=== PATIENT | female | born 1950 | race Caucasian/White ===

== ENCOUNTER → 2016-05-29 | Outpatient (CLI) | payer MEDICARE, BC ==
[~2016-05-29] MED LIST: ACET325 PO; ALLO100T PO; AMIO200 PO; ASPI325T PO; ATOR20TA15 PO; CALCCAP8 PO; CALCTAB23 PO; CRAN125T PO; CYCL5TAB PO; DILT120C9 PO; ECOT81TA2 PO; EQ N PO; FAMO1TAB36 PO; FAMO20TA2 PO; FLUT1SPR9 NASAL; FLUT50SP EACH NARE; FURO20TA PO; GABA300C3 PO; GABA300C5 PO; LEVO.1 PO; LISI-357 PO; MAGN500T4 PO; META0.52 PO; META48.54 PO; METO25CR PO; NICO2GUM35 CHEW; NITR0.4S SL; PLAV75TA PO; PRIL40CA PO; SIMV20 PO; SPIR25TA PO; SYNT88TA PO; TORS20 PO
[2016-05-29 13:16] LABS: BLOOD, URINE NEG (NEG); GLUCOSE,URINE NEG (NEG); HYALINE CAST, URINE 11 /lpf (RARE); KETONE, URINE NEG (NEG); MUCUS URINE FEW /lpf (OCC); NITRITE,URINE NEG (NEG); PH, URINE 7.5 (5.0-8.5); SQUAMOUS EPITHELIAL CELL URINE <1 /hpf (0-5); URINE COLOR LIGHT-YELLOW (YELLW/STRAW)
[2016-05-29 13:19] LABS: ALT (GPT) 29 U/L (10-53); ANION GAP 8 MEQ/L (5-15); AST (GOT) 20 U/L (15-37); AUTOMATED NEUTROPHIL # 4.9 TH/MM3 (1.8-7.7); BASOPHIL # 0.1 TH/MM3 (0-0.2); BASOPHIL % 1.1 % (0.0-2.0); BICARBONATE 31.2 MEQ/L (21.0-32.0); BLOOD UREA NITROGEN 22 MG/DL (7-18); CHLORIDE 100 MEQ/L (98-107); EOSINOPHIL # 0.3 TH/MM3 (0-0.4); EOSINOPHIL % 3.9 % (0.0-4.0); GLOMERULAR FILTRATION RATE 40 ML/MIN (>89); GLUCOSE,FASTING 105 MG/DL (74-99); HEMATOCRIT 35.9 % (35.0-46.0); HEMO FLAGS DIFF FINAL; LYMPH % 17.3 % (9.0-44.0); LYMPHOCYTE # 1.3 TH/MM3 (1.0-4.8); MEAN CELL VOLUME 91.8 FL (80.0-100.0); MEAN CORPUSCULAR HEMOGLOBIN 31.1 PG (27.0-34.0); MEAN CORPUSCULAR HGB CONC 33.9 % (32.0-36.0); MONO % 9.9 % (0.0-8.0); NEUT % 67.8 % (16.0-70.0); PLATELET COUNT 292 TH/MM3 (150-450); POTASSIUM 3.8 MEQ/L (3.5-5.1); RED BLOOD COUNT 3.91 MIL/MM3 (4.00-5.30); SODIUM (NA) 139 MEQ/L (136-145); WHITE BLOOD COUNT 7.2 TH/MM3 (4.0-11.0)
[2016-05-29 13:29] LABS: ALKALINE PHOSPHATASE 64 U/L (45-117); HDL CHOLESTEROL 92.8 MG/DL (40.0-60.0); LDL CHOLESTEROL 76 MG/DL (0-99); THYROXINE (T4) 9.5 MCG/DL (4.8-13.9); TOTAL BILIRUBIN ADULT 0.6 MG/DL (0.2-1.0)
[2016-05-29 17:16] LABS: HEMOGLOBIN A1a 1.1 %; HEMOGLOBIN A1b 0.9 %; HEMOGLOBIN Ao 84.5 %; HEMOGLOBIN F 0.9 %; HEMOGLOBIN LA1C 2.1 %; HEMOGLOBIN P3 5.8 %
== END ==
LOC: PLAB 10:22
PROVIDERS: ATTEND Internal Medicine
DX: E11.8 Type 2 diabetes mellitus with unspecified complications (principal); E03.9 Hypothyroidism, unspecified; E78.00 Pure hypercholesterolemia, unspecified
CPT/HCPCS: 36415; 80053; 80061; 81001; 83036; 84436; 84443; 84480; 85025

== ENCOUNTER → 2016-07-21 | Outpatient (CLI) | payer MEDICARE, BC | LOC: PLAB 12:23 | PROVIDERS: ATTEND Internal Medicine | DX: M10.9 Gout, unspecified (principal) | CPT/HCPCS: 36415; 84550 ==

== ENCOUNTER → 2016-08-19 | Outpatient (CLI) | payer MEDICARE, BC ==
[2016-08-19 13:50] LABS: BICARBONATE 30.3 MEQ/L (21.0-32.0); FREE T4 1.15 NG/DL (0.76-1.46); MAGNESIUM 2.7 MG/DL (1.5-2.5); POTASSIUM 3.9 MEQ/L (3.5-5.1)
== END ==
LOC: PLAB 09:59
PROVIDERS: ATTEND Internal Medicine Interventional Cardiology
DX: E78.5 Hyperlipidemia, unspecified (principal); I10 Essential (primary) hypertension; I25.10 Atherosclerotic heart disease of native coronary artery without angina pectoris
CPT/HCPCS: 36415; 80048; 83735; 84439; 84443

== ENCOUNTER → 2016-08-24 | Outpatient (CLI) | payer MEDICARE, BC ==
[2016-08-24 18:12] LABS: AUTOMATED NEUTROPHIL # 6.1 TH/MM3 (1.8-7.7); BASOPHIL # 0.1 TH/MM3 (0-0.2); BASOPHIL % 1.4 % (0.0-2.0); EOSINOPHIL # 0.2 TH/MM3 (0-0.4); EOSINOPHIL % 2.9 % (0.0-4.0); HEMATOCRIT 37.3 % (35.0-46.0); HEMO FLAGS DIFF FINAL; LYMPH % 14.6 % (9.0-44.0); LYMPHOCYTE # 1.2 TH/MM3 (1.0-4.8); MEAN CELL VOLUME 92.4 FL (80.0-100.0); MEAN CORPUSCULAR HEMOGLOBIN 30.2 PG (27.0-34.0); MEAN CORPUSCULAR HGB CONC 32.7 % (32.0-36.0); MONO % 8.6 % (0.0-8.0); NEUT % 72.5 % (16.0-70.0); PLATELET COUNT 282 TH/MM3 (150-450); RED BLOOD COUNT 4.03 MIL/MM3 (4.00-5.30); RED CELL DISTRIBUTION WIDTH 13.9 % (11.6-17.2); WHITE BLOOD COUNT 8.4 TH/MM3 (4.0-11.0)
[2016-08-24 18:40] LABS: TOTAL PROTEIN SPE 7.7 GM/DL (6.0-7.6)
[2016-08-24 19:50] LABS: ALKALINE PHOSPHATASE 69 U/L (45-117); ALT (GPT) 24 U/L (10-53); ANION GAP 12 MEQ/L (5-15); AST (GOT) 23 U/L (15-37); BICARBONATE 27.7 MEQ/L (21.0-32.0); BLOOD UREA NITROGEN 26 MG/DL (7-18); CHLORIDE 99 MEQ/L (98-107); GLOMERULAR FILTRATION RATE 36 ML/MIN (>89); GLUCOSE,FASTING 102 MG/DL (74-99); LDL CHOLESTEROL 42 MG/DL (0-99); SODIUM (NA) 139 MEQ/L (136-145)
[2016-08-25 21:56] LABS: ALBUMIN SPE 4.84 GM/DL (3.50-5.00); ALPHA 1 GLOBULIN 0.23 GM/DL (0.11-0.29); ALPHA 2 GLOBULIN 0.84 GM/DL (0.22-1.00); BETA GLOBULINS (SPE) 0.9 GM/DL (0.53-1.03)
[2016-08-27 23:52] LABS: KAPPA/LAMBDA FREE 2.02 (0.26-1.65)
== END ==
LOC: PLAB 14:28
PROVIDERS: ATTEND Internal Medicine Interventional Cardiology
DX: I35.0 Nonrheumatic aortic (valve) stenosis (principal); E55.9 Vitamin D deficiency, unspecified; I48.91 Unspecified atrial fibrillation; E78.5 Hyperlipidemia, unspecified; I13.0 Hypertensive heart and chronic kidney disease with heart failure and stage 1 through stage 4 chronic kidney disease, or unspecified chronic kidney disease; N18.3 Chronic kidney disease, stage 3 (moderate); I50.9 Heart failure, unspecified; I25.10 Atherosclerotic heart disease of native coronary artery without angina pectoris
CPT/HCPCS: 36415; 80053; 80061; 82306; 83883; 83970; 84100; 84165; 85025; 86803; 87340

== ENCOUNTER → 2016-09-15 | Outpatient (CLI) | payer MEDICARE, BC ==
[2016-09-15 13:38] LABS: ALKALINE PHOSPHATASE 68 U/L (45-117); ALT (GPT) 23 U/L (10-53); ANION GAP 9 MEQ/L (5-15); AST (GOT) 17 U/L (15-37); BICARBONATE 29.1 MEQ/L (21.0-32.0); BLOOD UREA NITROGEN 30 MG/DL (7-18); CHLORIDE 102 MEQ/L (98-107); GLOMERULAR FILTRATION RATE 38 ML/MIN (>89); GLUCOSE,FASTING 126 MG/DL (74-99); LDL CHOLESTEROL 56 MG/DL (0-99); POTASSIUM 4.6 MEQ/L (3.5-5.1); SODIUM (NA) 140 MEQ/L (136-145); TOTAL BILIRUBIN ADULT 0.5 MG/DL (0.2-1.0)
== END ==
LOC: PLAB 09:40
PROVIDERS: ATTEND Internal Medicine Interventional Cardiology
DX: E78.5 Hyperlipidemia, unspecified (principal); I35.0 Nonrheumatic aortic (valve) stenosis; I10 Essential (primary) hypertension; E03.9 Hypothyroidism, unspecified
CPT/HCPCS: 36415; 80053; 80061

== ENCOUNTER 2016-10-12 09:44 | Emergency (ER) | payer MEDICARE, BC ==
[~2016-10-12] VITALS: Ht 157.5 cm; Wt 75.0 kg
[~2016-10-12 09:44] MED LIST changes: -ALLO100T PO; -ASPI325T PO; -ATOR20TA15 PO; -CALCCAP8 PO; -DILT120C9 PO; -FAMO20TA2 PO; -FLUT50SP EACH NARE; -FURO20TA PO; -GABA300C5 PO; -META48.54 PO; -NICO2GUM35 CHEW; -SYNT88TA PO
[2016-10-12 09:46] VITALS: BP 121/70; PULSE 83; RESP 16; TEMP 97.8; O2SAT 98
[2016-10-12] MEDS ORDERED: FLUT50SP EACH NARE (10:29)
[2016-10-12] MEDS ORDERED: GABA300C5 PO (10:29)
[2016-10-12] MEDS ORDERED: META48.54 PO (10:29)
[2016-10-12] MEDS ORDERED: FURO20TA PO (10:29)
[2016-10-12] MEDS ORDERED: SPIR25TA PO (10:29)
[2016-10-12] MEDS ORDERED: ATOR20TA15 PO (10:29)
[2016-10-12] MEDS ORDERED: NICO2GUM35 CHEW (10:29)
[2016-10-12] MEDS ORDERED: CALCCAP8 PO (10:29)
[2016-10-12] MEDS ORDERED: DILT120C9 PO (10:29)
[2016-10-12] MEDS ORDERED: MAGN500T4 PO (10:29)
[2016-10-12] MEDS ORDERED: FAMO20TA2 PO (10:29)
[2016-10-12] MEDS ORDERED: ALLO100T PO (10:29)
[2016-10-12] MEDS ORDERED: NITR0.4S SL (10:29)
[2016-10-12] MEDS ORDERED: ASPI325T PO (10:29)
[2016-10-12] MEDS ORDERED: SYNT88TA PO (10:29)
[2016-10-12 10:42] VITALS: RESP 20; O2SAT 94
[2016-10-12] MEDS ORDERED: SODIUM CHLORIDE 0.9% FLUSH 10 ML FLUSH IVF PRN (10:45)
[2016-10-12 10:59] LABS: AUTOMATED NEUTROPHIL # 7.8 TH/MM3 (1.8-7.7); BASOPHIL # 0.1 TH/MM3 (0-0.2); BASOPHIL % 0.9 % (0.0-2.0); EOSINOPHIL # 0.2 TH/MM3 (0-0.4); EOSINOPHIL % 2.3 % (0.0-4.0); HEMATOCRIT 35.8 % (35.0-46.0); HEMO FLAGS DIFF FINAL; LYMPH % 10.2 % (9.0-44.0); MEAN CORPUSCULAR HEMOGLOBIN 29.6 PG (27.0-34.0); MEAN CORPUSCULAR HGB CONC 32.6 % (32.0-36.0); MONO % 7.2 % (0.0-8.0); NEUT % 79.4 % (16.0-70.0); PLATELET COUNT 273 TH/MM3 (150-450); RED BLOOD COUNT 3.94 MIL/MM3 (4.00-5.30); RED CELL DISTRIBUTION WIDTH 14.9 % (11.6-17.2); WHITE BLOOD COUNT 9.8 TH/MM3 (4.0-11.0)
[2016-10-12 11:23] LABS: ALT (GPT) 22 U/L (10-53); ANION GAP 9 MEQ/L (5-15); AST (GOT) 21 U/L (15-37); BICARBONATE 29.7 MEQ/L (21.0-32.0); BLOOD UREA NITROGEN 18 MG/DL (7-18); CHLORIDE 100 MEQ/L (98-107); GLOMERULAR FILTRATION RATE 41 ML/MIN (>89); MAGNESIUM 2.5 MG/DL (1.5-2.5); POTASSIUM 3.7 MEQ/L (3.5-5.1); SODIUM (NA) 139 MEQ/L (136-145)
[2016-10-12 11:26] LABS: PROTHROMBIN TIME - PATIENT 11.2 SEC (9.8-11.6)
[2016-10-12 11:27] LABS: ALKALINE PHOSPHATASE 73 U/L (45-117)
--- NOTE | 2016-10-12 11:28 | RADRPT ---
EXAM DATE/TIME: 10/12/2016 11:03 [facility] COMPARISON: CHEST PA & LAT, August 08, 2014, 13:11. INDICATIONS : Patient states cough and chest tightness. MEDICAL HISTORY : None. SURGICAL HISTORY : CABG. ENCOUNTER: Initial ACUITY: 1 day PAIN SCORE: 0/10 LOCATION: Bilateral chest FINDINGS: Frontal and lateral views of the chest demonstrate mildly enlarged cardiac silhouette in this patient post median sternotomy. Aortic valve replacement has been performed and there is a stent overlying t he proximal ascending aorta. Loop recorder type device overlies the left chest. There is stable scar in the left mid to lower lung zone. There is slight blunting of the right costophrenic angle. No pneu mothorax is visualized. Bones and soft tissues demonstrate no acute finding. Multiple embolization co ils are present within the upper abdomen. CONCLUSION: 1. Slight blunting of the right costophrenic angle likely indicating a small right pleural effusion. 2. Stable moderate enlargement of the cardiac silhouette in this patient post aortic valve replacemen t and stenting. Elmo Recio MD on October 12, 2016 at 11:24 Board Certified Radiologist. This report was verified electronically.
[2016-10-12 11:29] LABS: CREATINE KINASE 50 U/L (26-192)
[2016-10-12 12:40] VITALS: BP 115/62; PULSE 82; RESP 16; O2SAT 95
--- NOTE | 2016-10-12 15:05 | PD ---
HPI Chief Complaint: Respiratory Symptoms Time Seen by Provider: 10:30 Travel History International Travel<30 days: No Contact w/Intl Traveler<30days: No Traveled to known affect area: No History of Present Illness HPI Patient 66-year-old female presents emergency Department with some mild shortness of breath. Patient states feels similar to when her aortic valve filter in the past. She has a history of 3 aortic valve replacements. Patient is followed by Dr. Payton who recommended she come here after discussing with him over the phone. She denies any chest pain has minimal swelling her legs. States his been taking off her medicines as prescribed. She is concerned because [place] 3 [place] and wants to be checked out to make sure it safe to fly. She denies any dizziness weakness focalized weakness abdominal pain nausea vomiting. As he going on for a few days and gradually worsening. PFSH Past Medical History Hx Anticoagulant Therapy: Yes Arthritis: Yes Atrial Fibrillation: Yes (ABLATION 2011) Depression: Yes Heart Rhythm Problems: Yes (AFIB- ABLATION ) Cancer: No Cardiac Catheterization: Yes Cardiovascular Problems: Yes (valve replacement) High Cholesterol: Yes Congestive Heart Failure: Yes Diabetes: No Diminished Hearing: No Endocrine: Yes Gastrointestinal Disorders: Yes (GERD, HX GI BLEED) GERD: Yes Genitourinary: Yes Hepatitis: No Hiatal Hernia: No Hypertension: Yes Immune Disorder: No Implanted Vascular Access Dvce: Yes Kidney Stones: Yes Medical other: Yes (ESOPH. NERVE TO MUSCLE DYSFUNCTION, PORCELIN GB) Musculoskeletal: Yes (ARTHRITIS, ACL TEAR LEFT) Neurologic: Yes (RIGHT SCIATIC NERVE DAMAGE, HX SEIZURES) Psychiatric: No Reproductive: No Respiratory: Yes Pneumonia: Yes (X1) Seizures: Yes (MINI ) Thyroid Disease: Yes (HYPOTHYROID) Tetanus Vaccination: < 5 Years Influenza Vaccination: Yes PNEUMOCCOCAL Vaccine (Year): 1 Menopausal: Yes : 4 Para: 4 Miscarriage: 0 : 0 Past Surgical History Abdominal Surgery: Yes (16 COILS- FOR GI BLEED) AICD: No Body Medical Devices: HEART RECORDER, LUMBAR HARDWARE Cardiac Surgery: Yes (BOVINE AVR, loop recorder placed 1 1/2 yrs ago) Joint Replacement: Yes (LEFT HIP/RIGHT HIP) Neurologic Surgery: Yes (LUMBAR FUSION SCREWS AND RODS) Pacemaker: No Valve Replacement: Yes (AROTIC VALVE X 3 -2005, 2014) Other Surgery: Yes (CARDIOVERSION SEVERAL ) Social History Alcohol Use: Yes (RED WINE 1 GLASS DAILY) Tobacco Use: No (QUIT AGE 38) Substance Use: No Allergies-Medications (Allergen,Severity, Reaction): Coded Allergies: Carbamazepine (Verified Allergy, Unknown, 10/12/16) Dilantin (Verified Allergy, Unknown, 10/12/16) Penicillin (Verified Allergy, Unknown, RASH, 10/12/16) Lyrica (Verified Adverse Reaction, Severe, CONFUSION, 10/12/16) Reported Meds & Prescriptions Reported Meds & Active Scripts Active Reported Synthroid (Levothyroxine Sodium) 88 Mcg Tab 88 Mcg PO DAILY Spironolactone 25 Mg Tab 12.5 Mg PO DAILY Nitrostat SL (Nitroglycerin) 0.4 Mg Subl 0.4 Mg SL DIRECTED PRN 1 tablet under the tongue as needed for chest pain. Repeat every 5 minutes for a total of 3 DOSES or call 911 if NO relief. Nicotine Gum (Nicotine Polacrilex) 2 Mg Gum 2 Mg CHEW Q2H Metamucil (Psyllium Hydrophilic Mucilloid) 48.57 % Pow 1 PO DIRECTED Magnesium 500 Mg Tab 500 Mg PO DAILY Gabapentin 300 Mg Cap 300 Mg PO TID Furosemide 20 Mg Tab 10 Mg PO DAILY Fluticasone Nasal [place] 50 Mcg/Act Naspr 50 Mcg EACH NARE DAILY 50 mcg/spray Famotidine 20 Mg Tab 20 Mg PO BID Diltiazem ER 12 HR (Diltiazem HCl) 120 Mg Caper 120 Mg PO BID Calcium Plus Vitamin D (Calcium Carbonate-Vitamin D) 500-50 Mg-Unit Cap 1 Cap PO TID Atorvastatin (Atorvastatin Calcium) 20 Mg Tab 20 Mg PO HS Aspirin 325 Mg Tab 325 Mg PO DAILY Allopurinol 100 Mg Tab 100 Mg PO DAILY Review of Systems Except as stated in HPI: all other systems reviewed are Neg Physical Exam Narrative GENERAL: Well-developed well-nourished no apparent distress SKIN: Focused skin assessment warm/dry. HEAD: Atraumatic. Normocephalic. EYES: Pupils equal and round. No scleral icterus. No injection or drainage. ENT: No nasal bleeding or discharge. Mucous membranes pink and moist. NECK: Trachea midline. No JVD. CARDIOVASCULAR: Regular rate and rhythm. Systolic murmur appreciated best heard in the right sternal border. 2+ bilateral equal pulses in all 4 extremity 's. RESPIRATORY: No accessory muscle use. Clear to auscultation. Breath sounds equal bilaterally. GASTROINTESTINAL: Abdomen soft, non-tender, nondistended. Hepatic and splenic margins not palpable. MUSCULOSKELETAL: No obvious deformities. No clubbing. No cyanosis. There is edema in the lower extremity's.. NEUROLOGICAL: Awake and alert. No obvious cranial nerve deficits. Motor grossly within normal limits. Normal speech. PSYCHIATRIC: Appropriate mood and affect; insight and judgment normal. Data Data Last Documented VS Vital Signs Date Time Temp Pulse Resp B/P Pulse Ox O2 Delivery O2 Flow Rate FiO2 10/12/16 17:55 86 16 135/73 95 Room Air 10/12/16 09:46 97.8 Orders Electrocardiogram (10/12/16 ) B-Type Natriuretic Peptide (10/12/16 10:36) Ckmb (Isoenzyme) Profile (10/12/16 10:36) Complete Blood Count With Diff (10/12/16 10:36) Comprehensive Metabolic Panel (10/12/16 10:36) Magnesium (Mg) (10/12/16 10:36) Prothrombin Time / Inr (Pt) (10/12/16 10:36) Act Partial Throm Time (Ptt) (10/12/16 10:36) Troponin I (10/12/16 10:36) Ecg Monitoring (10/12/16 10:36) Iv Access Insert/Monitor (10/12/16 10:36) Oximetry (10/12/16 10:36) Oxygen Administration (10/12/16 10:36) Sodium Chloride 0.9% Flush (Ns Flush) (10/12/16 10:45) Chest, Pa & Lat (10/12/16 10:36) Ventilation & Perfusion Scan (10/12/16 ) Labs Laboratory Tests Test 10/12/16 10:40 White Blood Count 9.8 TH/MM3 Red Blood Count 3.94 MIL/MM3 Hemoglobin 11.7 GM/DL Hematocrit 35.8 % Mean Corpuscular Volume 91.0 FL Mean Corpuscular Hemoglobin 29.6 PG Mean Corpuscular Hemoglobin 32.6 % Concent Red Cell Distribution Width 14.9 % Platelet Count 273 TH/MM3 Mean Platelet Volume 7.6 FL Neutrophils (%) (Auto) 79.4 % Lymphocytes (%) (Auto) 10.2 % Monocytes (%) (Auto) 7.2 % Eosinophils (%) (Auto) 2.3 % Basophils (%) (Auto) 0.9 % Neutrophils # (Auto) 7.8 TH/MM3 Lymphocytes # (Auto) 1.0 TH/MM3 Monocytes # (Auto) 0.7 TH/MM3 Eosinophils # (Auto) 0.2 TH/MM3 Basophils # (Auto) 0.1 TH/MM3 CBC Comment DIFF FINAL Differential Comment Prothrombin Time 11.2 SEC Prothromb Time International 1.0 RATIO Ratio Activated Partial 25.0 SEC Thromboplast Time Sodium Level 139 MEQ/L Potassium Level 3.7 MEQ/L Chloride Level 100 MEQ/L Carbon Dioxide Level 29.7 MEQ/L Anion Gap 9 MEQ/L Blood Urea Nitrogen 18 MG/DL Creatinine 1.28 MG/DL Estimat Glomerular Filtration 41 ML/MIN Rate Random Glucose 125 MG/DL Calcium Level 9.6 MG/DL Magnesium Level 2.5 MG/DL Total Bilirubin 1.0 MG/DL Aspartate Amino Transf 21 U/L (AST/SGOT) Alanine Aminotransferase 22 U/L (ALT/SGPT) Alkaline Phosphatase 73 U/L Total Creatine Kinase 50 U/L Troponin I LESS THAN 0.02 NG/ML B-Type Natriuretic Peptide 122 PG/ML Total Protein 7.8 GM/DL Albumin 4.3 GM/DL MDM Medical Decision Making Medical Screen Exam Complete: Yes Emergency Medical Condition: Yes Interpretation(s) EKG shows atrial fibrillation with left bundle branch block, no Bret's criteria. This an abnormal EKG. No change from 05/19/2015. Differential Diagnosis ACS, [place], PE, acute aortic valve failure seems unlikely. Narrative Course Patient was roomed in the emergency department, she appears well and in no obvious distress. She's been saturating well on room air. Initial labs including troponin and EKG are reassuring. Chest x-ray negative. Discussed with Dr. Payton and because the patient has a history of paroxysmal atrial fibrillation is not anticoagulated he recommends ruling out pulmonary embolism and he would be happy to follow patient up in his office tomorrow. I think that this is a reasonable course of action given how well she appears. Patient does have a history of chronic kidney disease and her creatinine is 1.2 today. Per protocol she could undergo CT pulmonary embolism exam but she would prefer to avoid contrast. A VQ scan has been ordered instead and is low probability: Last 24 hours Impressions Chest X-Ray 10/12/16 1036 Signed Impressions: Service Date/Time: Wednesday, October 12, 2016 11:03 - CONCLUSION: 1. Slight blunting of the right costophrenic angle likely indicating a small right pleural effusion. 2. Stable moderate enlargement of the cardiac silhouette in this patient post aortic valve replacement and stenting. Elmo Recio MD Lung Scan-V Nuclear Medicine 10/12/16 0000 Signed Impressions: Service Date/Time: Wednesday, October 12, 2016 13:53 - CONCLUSION: Low probability of pulmonary embolism. Sam Weinstein MD Results were discussed with the patient and recommendations from Dr. Payton and she is agreeable to this course of action. She stable for discharge at this time. Diagnosis Primary Impression: SOB (shortness of breath) Additional Instructions: Call Dr. Payton tomorrow for follow-up appointment. Disposition: 01 DISCHARGE HOME Condition: Stable Adam Solis MD October 12, 2016 15:05
--- NOTE | 2016-10-12 15:45 | RADRPT ---
EXAM DATE/TIME: 10/12/2016 13:53 [facility] COMPARISON: LUNG VENTILATION & PERFUSION SCAN, July 12, 2014, 12:03. CHEST PA & LAT, October 12, 2016, 11:03. INDICATIONS : Dyspnea. History of recent cough and chest tightness. DOSE: 0.78 mCi Tc99m DTPA 8.6 mCi Tc99m MAA MEDICAL HISTORY : Congestive heart failure. Hypertension. Gastrointestinal bleed. A-fib. SURGICAL HISTORY : Total knee replacement, right. Angioplasty. Fusion, lumbar. Loop recorder. ENCOUNTER: Initial ACUITY: 1 day PAIN SCALE: 0/10 LOCATION: Bilateral chest TECHNIQUE: Following five minutes of tidal breathing of DTPA aerosol, planar images of the lungs were performed in eight projections. The patient was then injected with MAA, and eight-view perfusion scan was perf ormed. FINDINGS: There is a mildly inhomogeneous pattern of aerosol delivery to the periphery of both lungs. There are central areas of mild radiopharmaceutical deposition and irregularity. The perfusion lung scan demonstrates a mildly inhomogeneous pattern of uptake in both lungs. No segm ental or subsegmental defects are seen. CONCLUSION: Low probability of pulmonary embolism. Sam Weinstein MD on October 12, 2016 at 15:42 Board Certified Radiologist. This report was verified electronically.
[2016-10-12 17:55] VITALS: BP 135/73; PULSE 86; RESP 16; O2SAT 95
--- NOTE | 2016-10-13 15:31 | EKG ---
Date Performed: 10/12/2016 Time Performed: 10:09:37 PTAGE: 66 years EKG: ATRIAL FIBRILLATION LEFT BUNDLE BRANCH BLOCK ABNORMAL ECG Compared to prior tracing no sign ificant change PREVIOUS TRACING : 05/19/2015 16.57 DOCTOR: Callum Huerta Interpretating Date/Time 10/13/2016 15:30:27
== END 2016-10-12 18:09 | disposition home or self-care (01) ==
LOC: NEPE 09:44
DX: R06.02 Shortness of breath (principal); I48.91 Unspecified atrial fibrillation; I44.7 Left bundle-branch block, unspecified; E78.00 Pure hypercholesterolemia, unspecified; I50.9 Heart failure, unspecified; I10 Essential (primary) hypertension; Z95.2 Presence of prosthetic heart valve; Z79.01 Long term (current) use of anticoagulants; Z87.891 Personal history of nicotine dependence
CPT/HCPCS: 71020; 78582; 80053; 82550; 83735; 83880; 84484; 85025; 85610; 85730; 93005; 99285; A9540; A9567

== ENCOUNTER → 2017-06-15 | Outpatient (CLI) | payer MEDICARE, BC ==
[~2017-06-15] MED LIST changes: -ACET325 PO; +ALLO100T PO; -AMIO200 PO; +ASPI-183 PO; +ATOR20TA15 PO; +CALCCAP8 PO; -CALCTAB23 PO; -CRAN125T PO; -CYCL5TAB PO; +DILT120C9 PO; -ECOT81TA2 PO; -EQ N PO; -FAMO1TAB36 PO; +FAMO20TA2 PO; -FLUT1SPR9 NASAL; +FLUT50SP EACH NARE; +FURO20TA PO; -GABA300C3 PO; +GABA300C5 PO; -LEVO.1 PO; -LISI-357 PO; -META0.52 PO; +META48.54 PO; -METO25CR PO; +NICO2GUM CHEW; -PLAV75TA PO; -PRIL40CA PO; -SIMV20 PO; +SYNT88TA PO; -TORS20 PO
[2017-06-15 13:07] LABS: HEMATOCRIT 32.3 % (35.0-46.0); HEMOGLOBIN 10.3 GM/DL (11.6-15.3); MEAN CELL VOLUME 80.9 FL (80.0-100.0); MEAN CORPUSCULAR HEMOGLOBIN 25.8 PG (27.0-34.0); MEAN CORPUSCULAR HGB CONC 31.9 % (32.0-36.0); PLATELET COUNT 281 TH/MM3 (150-450); RED BLOOD COUNT 3.99 MIL/MM3 (4.00-5.30); RED CELL DISTRIBUTION WIDTH 18.4 % (11.6-17.2); WHITE BLOOD COUNT 6.6 TH/MM3 (4.0-11.0)
[2017-06-15 13:36] LABS: ALBUMIN 4.2 GM/DL (3.4-5.0); AST (GOT) 15 U/L (15-37); BICARBONATE 30.8 MEQ/L (21.0-32.0); BLOOD UREA NITROGEN 35 MG/DL (7-18); CALCIUM 9.7 MG/DL (8.5-10.1); CHLORIDE 97 MEQ/L (98-107); CREATININE 1.44 MG/DL (0.50-1.00); GLOMERULAR FILTRATION RATE 36 ML/MIN (>89); GLUCOSE,RANDOM 143 MG/DL (74-106); SODIUM (NA) 136 MEQ/L (136-145)
[2017-06-15 13:37] LABS: CHOLESTEROL 141 MG/DL (120-200)
[2017-06-15 13:48] LABS: ALKALINE PHOSPHATASE 88 U/L (45-117); ALT (GPT) 14 U/L (10-53); CHOLESTEROL/ HDL RATIO 2.75 RATIO; FREE T4 1.26 NG/DL (0.76-1.46); HDL CHOLESTEROL 51.1 MG/DL (40.0-60.0); LDL CHOLESTEROL 72 MG/DL (0-99); TOTAL BILIRUBIN ADULT 0.8 MG/DL (0.2-1.0); TOTAL PROTEIN 7.9 GM/DL (6.4-8.2); TRIGLYCERIDES 89 MG/DL (42-150)
[2017-06-15 16:42] LABS: HEMOGLOBIN A1C 6.8 % (4.3-6.0)
[2017-06-17 17:51] LABS: THYROID PEROX AB (MICROSOMAL) LESS THAN 1 IU/mL (<9)
[2017-06-18 03:49] LABS: THYROGLOB ABS LESS THAN 1 IU/mL (< OR = 1)
== END ==
LOC: PLAB 10:26
DX: E78.00 Pure hypercholesterolemia, unspecified (principal); N18.3 Chronic kidney disease, stage 3 (moderate); R73.09 Other abnormal glucose
CPT/HCPCS: 36415; 80053; 80061; 83036; 84439; 84481; 85027; 86376; 86800

== ENCOUNTER → 2017-07-13 | Outpatient (CLI) | payer MEDICARE, BC ==
[2017-07-13 13:01] LABS: INTERNATIONAL NORMALIZED RATIO 1.4 RATIO; PROTHROMBIN TIME - PATIENT 14.4 SEC (9.8-11.6)
== END ==
LOC: PLAB 10:16
DX: Z95.2 Presence of prosthetic heart valve (principal); Z79.01 Long term (current) use of anticoagulants
CPT/HCPCS: 36415; 85610

== ENCOUNTER → 2017-07-20 | Outpatient (CLI) | payer MEDICARE, BC ==
[2017-07-20 11:46] LABS: INTERNATIONAL NORMALIZED RATIO 2.4 RATIO; PROTHROMBIN TIME - PATIENT 24.1 SEC (9.8-11.6)
== END ==
LOC: PLAB 10:20
DX: Z95.2 Presence of prosthetic heart valve (principal); Z79.01 Long term (current) use of anticoagulants
CPT/HCPCS: 36415; 85610

== ENCOUNTER → 2017-07-27 | Outpatient (CLI) | payer MEDICARE, BC ==
[2017-07-27 11:41] LABS: INTERNATIONAL NORMALIZED RATIO 2.6 RATIO; PROTHROMBIN TIME - PATIENT 26.2 SEC (9.8-11.6)
== END ==
LOC: PLAB 10:28
DX: Z95.2 Presence of prosthetic heart valve (principal); Z79.01 Long term (current) use of anticoagulants
CPT/HCPCS: 36415; 85610

== ENCOUNTER → 2017-08-18 | Outpatient (CLI) | payer MEDICARE, BC ==
[2017-08-18 12:11] LABS: INTERNATIONAL NORMALIZED RATIO 2.6 RATIO; PROTHROMBIN TIME - PATIENT 26.1 SEC (9.8-11.6)
== END ==
LOC: PLAB 11:16
DX: Z95.2 Presence of prosthetic heart valve (principal); Z79.01 Long term (current) use of anticoagulants
CPT/HCPCS: 36415; 85610

== ENCOUNTER → 2017-08-24 | Outpatient (CLI) | payer MEDICARE, BC ==
[~2017-08-24] MED LIST changes: +ASPI81CH6 PO; +CALC500T43 PO; +COLA100C5 PO; +CRANCAP2 PO; +FURO1TAB62 PO; +MAGN500T2 PO; +PANT40TA3 PO; +PRAV40TA2 PO
[2017-08-24 14:16] LABS: BASOPHIL # 0.1 TH/MM3 (0-0.2); BASOPHIL % 1.5 % (0.0-2.0); EOSINOPHIL # 0.1 TH/MM3 (0-0.4); EOSINOPHIL % 1.8 % (0.0-4.0); HEMATOCRIT 31.3 % (35.0-46.0); HEMOGLOBIN 10.1 GM/DL (11.6-15.3); LYMPH % 12.5 % (9.0-44.0); MEAN CELL VOLUME 77.7 FL (80.0-100.0); MEAN CORPUSCULAR HGB CONC 32.2 % (32.0-36.0); MEAN PLATELET VOLUME 7.8 FL (7.0-11.0); MONO % 8.8 % (0.0-8.0); MONOCYTE # 0.7 TH/MM3 (0-0.9); NEUT % 75.4 % (16.0-70.0); PLATELET COUNT 327 TH/MM3 (150-450); RED BLOOD COUNT 4.03 MIL/MM3 (4.00-5.30); RED CELL DISTRIBUTION WIDTH 17.6 % (11.6-17.2)
== END ==
LOC: PLAB 12:13
PROVIDERS: ATTEND Internal Medicine
DX: K04.7 Periapical abscess without sinus (principal)
CPT/HCPCS: 36415; 85025

== ENCOUNTER 2017-08-30 12:13 | Emergency (ER) | payer MEDICARE, BC ==
[~2017-08-30] VITALS: Ht 156.2 cm; Wt 75.9 kg
[~2017-08-30 12:13] MED LIST changes: -ASPI81CH6 PO; -CALC500T43 PO; -COLA100C5 PO; -CRANCAP2 PO; -FURO1TAB62 PO; -MAGN500T2 PO; -PANT40TA3 PO; -PRAV40TA2 PO
[2017-08-30 12:30] VITALS: BP 107/56; PULSE 60; RESP 20; TEMP 98.1; O2SAT 97
--- NOTE | 2017-08-30 13:42 | RADRPT ---
EXAM DATE/TIME: 08/30/2017 12:48 [facility] COMPARISON: CHEST PA & LAT, October 12, 2016, 11:03. INDICATIONS : Pt states she has had extreem weight loss of 3lbs over the past 3 days. Pt states SOB for 1day. MEDICAL HISTORY : None. SURGICAL HISTORY : None. 2 aortic clips, pacemaker, watchmen ENCOUNTER: Initial ACUITY: 3 days PAIN SCORE: 0/10 LOCATION: Bilateral chest FINDINGS: PA and lateral views of the chest demonstrate the lungs to be symmetrically aerated without evidence of mass, infiltrate or effusion. Aortic valve prosthesis is evident. Pacemaker on the left. Ventri moe are noted. Moderate compensated cardiomegaly Osseous structures are intact. CONCLUSION: Moderate compensated cardiomegaly Tulio Metz MD FACR on August 30, 2017 at 13:39 Board Certified Radiologist. This report was verified electronically.
[2017-08-30 13:49] LABS: AUTOMATED NEUTROPHIL # 10.5 TH/MM3 (1.8-7.7); BASOPHIL # 0.1 TH/MM3 (0-0.2); BASOPHIL % 0.8 % (0.0-2.0); EOSINOPHIL % 0.4 % (0.0-4.0); HEMATOCRIT 29.8 % (35.0-46.0); HEMOGLOBIN 9.4 GM/DL (11.6-15.3); LYMPH % 6.5 % (9.0-44.0); LYMPHOCYTE # 0.8 TH/MM3 (1.0-4.8); MEAN CELL VOLUME 77.6 FL (80.0-100.0); MEAN CORPUSCULAR HEMOGLOBIN 24.5 PG (27.0-34.0); MEAN CORPUSCULAR HGB CONC 31.5 % (32.0-36.0); MEAN PLATELET VOLUME 7.6 FL (7.0-11.0); MONO % 9.7 % (0.0-8.0); MONOCYTE # 1.2 TH/MM3 (0-0.9); NEUT % 82.6 % (16.0-70.0); PLATELET COUNT 314 TH/MM3 (150-450); RED BLOOD COUNT 3.84 MIL/MM3 (4.00-5.30); RED CELL DISTRIBUTION WIDTH 18.1 % (11.6-17.2); WHITE BLOOD COUNT 12.8 TH/MM3 (4.0-11.0)
[2017-08-30 13:59] LABS: INTERNATIONAL NORMALIZED RATIO 1.5 RATIO; PROTHROMBIN TIME - PATIENT 15.2 SEC (9.8-11.6)
[2017-08-30 14:03] LABS: ALBUMIN 3.9 GM/DL (3.4-5.0); ALT (GPT) 15 U/L (10-53); AST (GOT) 17 U/L (15-37); BICARBONATE 29.8 MEQ/L (21.0-32.0); BLOOD UREA NITROGEN 30 MG/DL (7-18); CALCIUM 8.8 MG/DL (8.5-10.1); CHLORIDE 96 MEQ/L (98-107); CREATININE 1.53 MG/DL (0.50-1.00); GLOMERULAR FILTRATION RATE 34 ML/MIN (>89); GLUCOSE,RANDOM 103 MG/DL (74-106); MAGNESIUM 2.7 MG/DL (1.5-2.5); SODIUM (NA) 136 MEQ/L (136-145)
[2017-08-30 14:07] LABS: ALKALINE PHOSPHATASE 78 U/L (45-117); TOTAL BILIRUBIN ADULT 1.8 MG/DL (0.2-1.0); TOTAL PROTEIN 7.8 GM/DL (6.4-8.2); TROPONIN I LESS THAN 0.02 NG/ML (0.02-0.05)
--- NOTE | 2017-08-30 14:51 | EKG ---
Date Performed: 08/30/2017 Time Performed: 13:13:17 PTAGE: 67 years EKG: ELECTRONIC VENTRICULAR PACEMAKER ABNORMAL RHYTHM ECG Compared to prior electrocardiogram, V entricular pacemaker is present. PREVIOUS TRACING : 10/12/2016 10.09 DOCTOR: Leno Payton Interpretating Date/Time 08/30/2017 14:50:37
[2017-08-30 16:52] VITALS: BP 126/63; PULSE 60; RESP 20; O2SAT 100
--- NOTE | 2017-08-30 16:56 | PD ---
HPI Chief Complaint: Respiratory Symptoms Time Seen by Provider: 16:41 Travel History International Travel<30 days: No Contact w/Intl Traveler<30days: No Traveled to known affect area: No History of Present Illness HPI 67-year-old female complains of body ache, shortness of breath, abdominal distention. Patient states that the symptoms started 2 days ago. Patient states that she is feeling hot and cold however no fever at home. Patient denies any headache. Bleeding patient denies any earache or sore throat. Patient denies any coughing congestion. Patient denies any chest pain. Patient denies abdominal pain. Patient states that she has abdominal bloating. Patient denies any nausea vomiting or diarrhea. Patient had normal bowel movement yesterday. Patient has history of aortic valve replacement, pacemaker placement. Patient also has history of GI bleed. Patient denies any recent black or tarry stool or bloody stool. Patient also complained of swollen neck glands. Patient has been taking Z-Ozzy last week and on Z-Ozzy now. Patient awaiting dental surgery. PFSH Past Medical History Hx Anticoagulant Therapy: Yes Arthritis: Yes Atrial Fibrillation: Yes (ABLATION 2011) Depression: Yes Heart Rhythm Problems: Yes (AFIB- ABLATION ) Cancer: No Cardiac Catheterization: Yes Cardiovascular Problems: Yes (valve replacement) High Cholesterol: Yes Congestive Heart Failure: Yes Diabetes: No Diminished Hearing: No Endocrine: Yes Gastrointestinal Disorders: Yes (GERD, HX GI BLEED) GERD: Yes Genitourinary: Yes Hepatitis: No Hiatal Hernia: No Hypertension: Yes Immune Disorder: No Implanted Vascular Access Dvce: Yes Kidney Stones: Yes Musculoskeletal: Yes (ARTHRITIS, ACL TEAR LEFT) Neurologic: Yes (RIGHT SCIATIC NERVE DAMAGE, HX SEIZURES) Psychiatric: No Reproductive: No Respiratory: Yes Pneumonia: Yes (X1) Seizures: Yes (MINI ) Thyroid Disease: Yes (HYPOTHYROID) PNEUMOCCOCAL Vaccine (Year): 1 Menopausal: Yes : 4 Para: 4 Miscarriage: 0 : 0 Past Surgical History Abdominal Surgery: Yes (16 COILS- FOR GI BLEED) AICD: No Body Medical Devices: HEART RECORDER, LUMBAR HARDWARE Cardiac Surgery: Yes (BOVINE AVR, loop recorder placed 1 1/2 yrs ago) Joint Replacement: Yes (LEFT HIP/RIGHT HIP) Neurologic Surgery: Yes (LUMBAR FUSION SCREWS AND RODS) Pacemaker: No Valve Replacement: Yes (AROTIC VALVE X 3 -2005, 2014) Other Surgery: Yes (CARDIOVERSION SEVERAL ) Social History Alcohol Use: Yes (RED WINE 1 GLASS DAILY) Tobacco Use: No (QUIT AGE 38) Substance Use: No Allergies-Medications (Allergen,Severity, Reaction): Coded Allergies: carbamazepine (Unverified Allergy, Unknown, 01/06/17) penicillin G (Unverified Allergy, Unknown, RASH, 01/06/17) phenytoin (Unverified Allergy, Unknown, 01/06/17) pregabalin (Unverified Adverse Reaction, Severe, CONFUSION, 01/06/17) Reported Meds & Prescriptions Reported Meds & Active Scripts Active Reported Colace (Docusate Sodium) 100 Mg Capsule 100 Mg PO BID Cranberry Urinary Comfort (Vitamins C & E) 1 Cap 1 Cap PO DAILY Magnesium Oxide 500 Mg Tab 500 Mg PO BID Calcium/Vitamin D (Calcium Carbonate-Vitamin D) 500-200 Mg-Unit Tab 1 Tab PO BID Pravastatin 40 Mg Tab 40 Mg PO DAILY Lasix (Furosemide) 20 Mg Tab 20 Mg PO BID Aspirin Low Dose (Aspirin) 81 Mg Chew 81 Mg PO DAILY Pantoprazole (Pantoprazole Sodium) 40 Mg Tab 40 Mg PO DAILY Synthroid (Levothyroxine Sodium) 88 Mcg Tab 88 Mcg PO DAILY Spironolactone 25 Mg Tab 12.5 Mg PO DAILY Nitrostat SL (Nitroglycerin) 0.4 Mg Subl 0.4 Mg SL DIRECTED PRN 1 tablet under the tongue as needed for chest pain. Repeat every 5 minutes for a total of 3 DOSES or call 911 if NO relief. Nicotine Gum (Nicotine Polacrilex) 2 Mg Gum 2 Mg CHEW Q2H Metamucil (Psyllium Hydrophilic Mucilloid) 48.57 % Pow 1 PO DIRECTED Gabapentin 300 Mg Cap 300 Mg PO TID Fluticasone Nasal [place] 50 Mcg/Act Naspr 50 Mcg EACH NARE DAILY 50 mcg/spray Allopurinol 100 Mg Tab 100 Mg PO DAILY Review of Systems General / Constitutional: No: Fever Eyes: No: Visual changes HENT: No: Headaches Cardiovascular: No: Chest Pain or Discomfort Respiratory: Positive: Shortness of Breath Gastrointestinal: No: Abdominal Pain Genitourinary: No: Dysuria Musculoskeletal: No: Pain Skin: No Rash Neurologic: No: Weakness Psychiatric: No: Depression Endocrine: No: Polydipsia Hematologic/Lymphatic: No: Easy Bruising Physical Exam Narrative GENERAL: Well-nourished, well-developed patient. SKIN: Focused skin assessment warm/dry. HEAD: Normocephalic. EYES: No scleral icterus. No injection or drainage. Throat: Nonerythematous. NECK: Supple, trachea midline. No JVD or lymphadenopathy. No meningismus CARDIOVASCULAR: Regular rate and rhythm without murmurs, gallops, or rubs. RESPIRATORY: Breath sounds equal bilaterally. No accessory muscle use. GASTROINTESTINAL: Abdomen mildly distended. No tenderness on palpation. No rebound tenderness no mass. MUSCULOSKELETAL: No cyanosis, or edema. BACK: Nontender without obvious deformity. No CVA tenderness. Neurologic exam normal. Data Data Last Documented VS Vital Signs Date Time Temp Pulse Resp B/P (MAP) Pulse Ox O2 Delivery O2 Flow Rate FiO2 08/30/17 16:52 60 20 126/63 (84) 100 Room Air 08/30/17 12:30 98.1 Orders Orders Complete Blood Count With Diff (08/30/17 12:33) Comprehensive Metabolic Panel (08/30/17 12:33) B-Type Natriuretic Peptide (08/30/17 12:33) Act Partial Throm Time (Ptt) (08/30/17 12:33) Prothrombin Time / Inr (Pt) (08/30/17 12:33) Magnesium (Mg) (08/30/17 12:33) Ckmb (Isoenzyme) Profile (08/30/17 12:33) Troponin I (08/30/17 12:33) Electrocardiogram (08/30/17 12:33) Chest, Pa & Lat (08/30/17 12:33) Abdomen, Flat & Upright (08/30/17 16:49) Influenzae A/B Antigen (08/30/17 16:49) Labs Laboratory Tests Test 08/30/17 13:14 White Blood Count 12.8 TH/MM3 Red Blood Count 3.84 MIL/MM3 Hemoglobin 9.4 GM/DL Hematocrit 29.8 % Mean Corpuscular Volume 77.6 FL Mean Corpuscular Hemoglobin 24.5 PG Mean Corpuscular Hemoglobin Concent 31.5 % Red Cell Distribution Width 18.1 % Platelet Count 314 TH/MM3 Mean Platelet Volume 7.6 FL Neutrophils (%) (Auto) 82.6 % Lymphocytes (%) (Auto) 6.5 % Monocytes (%) (Auto) 9.7 % Eosinophils (%) (Auto) 0.4 % Basophils (%) (Auto) 0.8 % Neutrophils # (Auto) 10.5 TH/MM3 Lymphocytes # (Auto) 0.8 TH/MM3 Monocytes # (Auto) 1.2 TH/MM3 Eosinophils # (Auto) 0.0 TH/MM3 Basophils # (Auto) 0.1 TH/MM3 CBC Comment DIFF FINAL Differential Comment Prothrombin Time 15.2 SEC Prothromb Time International Ratio 1.5 RATIO Activated Partial Thromboplast Time 31.9 SEC Blood Urea Nitrogen 30 MG/DL Creatinine 1.53 MG/DL Random Glucose 103 MG/DL Total Protein 7.8 GM/DL Albumin 3.9 GM/DL Calcium Level 8.8 MG/DL Magnesium Level 2.7 MG/DL Alkaline Phosphatase 78 U/L Aspartate Amino Transf (AST/SGOT) 17 U/L Alanine Aminotransferase (ALT/SGPT) 15 U/L Total Bilirubin 1.8 MG/DL Sodium Level 136 MEQ/L Potassium Level 3.6 MEQ/L Chloride Level 96 MEQ/L Carbon Dioxide Level 29.8 MEQ/L Anion Gap 10 MEQ/L Estimat Glomerular Filtration Rate 34 ML/MIN Total Creatine Kinase 47 U/L Troponin I LESS THAN 0.02 NG/ML B-Type Natriuretic Peptide 389 PG/ML MDM Medical Decision Making Medical Screen Exam Complete: Yes Emergency Medical Condition: Yes Interpretation(s) Last Impressions Chest X-Ray 08/30/17 1233 Signed Impressions: Service Date/Time: Wednesday, August 30, 2017 12:48 - CONCLUSION: Moderate compensated cardiomegaly Tulio Metz MD FACR 1737 PM. CBC WBC 12.8. Hemoglobin 9.4 hematocrit 29.7. MCV 77.6. 82 neutrophil. BUN 30. Creatinine 1.53. Cardiac enzymes are normal. BNP 389. INR 1.5. Influenza AB antigen negative. Differential Diagnosis Differential diagnosis including viral syndrome, bronchitis, pneumonia, gastroenteritis, bowel obstruction. Narrative Course 67-year-old female with shortness of breath, body ache, abdominal distention. Diagnosis Primary Impression: Viral syndrome Patient Instructions: General Instructions Additional Instructions: Fluids and Tylenol as needed. Follow-up with personal physician. Return if worse. Med/Other Pt SpecificInfo: No Change to Meds Disposition: 01 DISCHARGE HOME Condition: Stable Obi Miller MD Aug 30, 2017 16:56
[2017-08-30] MEDS ORDERED: PRAV40TA2 PO (17:04)
[2017-08-30] MEDS ORDERED: FURO1TAB62 PO (17:04)
[2017-08-30] MEDS ORDERED: MAGN500T2 PO (17:04)
[2017-08-30] MEDS ORDERED: CALC500T43 PO (17:04)
[2017-08-30] MEDS ORDERED: CRANCAP2 PO (17:04)
[2017-08-30] MEDS ORDERED: ASPI81CH6 PO (17:04)
[2017-08-30] MEDS ORDERED: PANT40TA3 PO (17:04)
[2017-08-30] MEDS ORDERED: COLA100C5 PO (17:04)
--- NOTE | 2017-08-30 17:32 | RADRPT ---
EXAM DATE/TIME: 08/30/2017 17:18 [facility] COMPARISON: No previous studies available for comparison. INDICATIONS : Abdominal bloating. MEDICAL HISTORY : None. SURGICAL HISTORY : None. ENCOUNTER: Initial ACUITY: 2 days PAIN SCORE: 0/10 LOCATION: Bilateral abdomen. FINDINGS: Multiple apparent vascular coils in the upper abdomen. Calcification in the region of the gallbladder likely reflects a calcified gallstone. There is a left common femoral artery stent in place. Stool s een throughout the colon. There are no dilated loops of bowel or air fluid levels in the upright view . No gross free air or pneumatosis. Postsurgical features of transpedicular clayton and screw fixation in the lumbar spine with bilateral total hip arthroplasties in place. CONCLUSION: 1. Extensive postsurgical features. 2. Nonobstructive bowel gas pattern. 3. Cholelithiasis. Catrachito Singletary MD on August 30, 2017 at 17:27 Board Certified Radiologist. This report was verified electronically.
== END 2017-08-30 18:59 | disposition home or self-care (01) ==
LOC: NEPE 12:13
DX: B34.9 Viral infection, unspecified (principal); E03.9 Hypothyroidism, unspecified; E78.00 Pure hypercholesterolemia, unspecified; I11.0 Hypertensive heart disease with heart failure; I50.9 Heart failure, unspecified; K21.9 Gastro-esophageal reflux disease without esophagitis; Z87.891 Personal history of nicotine dependence
CPT/HCPCS: 71046; 74019; 80053; 82550; 83735; 83880; 84484; 85025; 85610; 85730; 87804; 93005; 99285

== ENCOUNTER → 2017-09-14 | Outpatient (CLI) | payer MEDICARE, BC ==
[~2017-09-14] MED LIST changes: -ASPI-183 PO; +ASPI81CH6 PO; -ATOR20TA15 PO; +CALC500T43 PO; -CALCCAP8 PO; +COLA100C5 PO; +CRANCAP2 PO; -DILT120C9 PO; -FAMO20TA2 PO; +FURO1TAB62 PO; -FURO20TA PO; +MAGN500T2 PO; -MAGN500T4 PO; +PANT40TA3 PO; +PRAV40TA2 PO
[2017-09-14 15:29] LABS: INTERNATIONAL NORMALIZED RATIO 2.1 RATIO; PROTHROMBIN TIME - PATIENT 21.4 SEC (9.8-11.6)
== END ==
LOC: PLAB 13:09
DX: Z79.01 Long term (current) use of anticoagulants (principal); Z95.2 Presence of prosthetic heart valve
CPT/HCPCS: 36415; 85610

== ENCOUNTER → 2017-09-30 | Outpatient (CLI) | payer MEDICARE, BC ==
[2017-09-30 16:01] LABS: INTERNATIONAL NORMALIZED RATIO 2.5 RATIO; PROTHROMBIN TIME - PATIENT 25.7 SEC (9.8-11.6)
[2017-09-30 18:30] LABS: HEMATOCRIT 33.2 % (35.0-46.0); HEMOGLOBIN 10.2 GM/DL (11.6-15.3); MEAN CELL VOLUME 77.9 FL (80.0-100.0); MEAN CORPUSCULAR HEMOGLOBIN 23.9 PG (27.0-34.0); MEAN CORPUSCULAR HGB CONC 30.6 % (32.0-36.0); MEAN PLATELET VOLUME 7.6 FL (7.0-11.0); PLATELET COUNT 322 TH/MM3 (150-450); RED BLOOD COUNT 4.26 MIL/MM3 (4.00-5.30); RED CELL DISTRIBUTION WIDTH 18.5 % (11.6-17.2); WHITE BLOOD COUNT 8.5 TH/MM3 (4.0-11.0)
[2017-09-30 18:44] LABS: ALBUMIN 4.4 GM/DL (3.4-5.0); AST (GOT) 28 U/L (15-37); BICARBONATE 30.2 MEQ/L (21.0-32.0); BLOOD UREA NITROGEN 32 MG/DL (7-18); CALCIUM 9.6 MG/DL (8.5-10.1); CHLORIDE 98 MEQ/L (98-107); GLOMERULAR FILTRATION RATE 37 ML/MIN (>89); GLUCOSE,RANDOM 96 MG/DL (74-106); MAGNESIUM 2.8 MG/DL (1.5-2.5); SODIUM (NA) 139 MEQ/L (136-145)
[2017-09-30 19:09] LABS: % SATURATION IRON PROFILE 5.4 % (20-50); ALKALINE PHOSPHATASE 98 U/L (45-117); ALT (GPT) 19 U/L (10-53); FERRITIN 24 NG/ML (8-252); FOLATE 12.4 NG/ML (3.1-17.5); FREE T4 1.29 NG/DL (0.76-1.46); IRON (FE) 35 MCG/DL (50-170); TOTAL BILIRUBIN ADULT 1.2 MG/DL (0.2-1.0); TOTAL IRON BINDING CAPACITY 652 MCG/DL (250-450); TOTAL PROTEIN 8.3 GM/DL (6.4-8.2)
== END ==
LOC: PLAB 12:10
DX: E03.9 Hypothyroidism, unspecified (principal); I10 Essential (primary) hypertension; R25.2 Cramp and spasm; D51.0 Vitamin B12 deficiency anemia due to intrinsic factor deficiency; Z95.2 Presence of prosthetic heart valve; Z79.01 Long term (current) use of anticoagulants
CPT/HCPCS: 36415; 80053; 82607; 82728; 82746; 83540; 83550; 83735; 84439; 84443; 85027; 85610